=== PATIENT | female | born 1960 | race Caucasian/White ===

== ENCOUNTER → 2017-06-11 | Outpatient (CLI) | payer OTHER ==
[~2017-06-11] VITALS: Ht 152.4 cm; Wt 93.9 kg
[~2017-06-11] MED LIST: CATAFLAM50 MG; FLEXERIL5 MG; GILTUSS TR TAB1 EACH PO; NEURONTIN300 MG; NEURONTIN300 MG PO; NEURONTIN600 MG PO; TRENTAL 400 MG PO; VOLTAREM 50 MG PO
== END | disposition home or self-care (01) ==
LOC: PPHC 17:37
DX: M79.641 Pain in right hand (principal)

== ENCOUNTER 2017-06-15 11:11 | Outpatient (CLI) | payer OTHER | END 2017-06-15 11:17 | disposition home or self-care (01) | LOC: MAMO-SONO 11:11 | DX: Z12.31 Encounter for screening mammogram for malignant neoplasm of breast (principal) ==

== ENCOUNTER 2017-06-16 11:31 | Outpatient (CLI) | payer OTHER | END 2017-06-16 11:36 | disposition home or self-care (01) | LOC: RAD 11:31 | DX: M79.644 Pain in right finger(s) (principal) ==

== ENCOUNTER → 2017-07-21 | Outpatient (CLI) | payer OTHER | END | disposition home or self-care (01) | LOC: PPHC 08:29 | DX: Z00.00 Encounter for general adult medical examination without abnormal findings (principal) ==

== ENCOUNTER 2017-07-23 08:07 | Outpatient (CLI) | payer OTHER | END 2017-07-23 08:19 | disposition home or self-care (01) | LOC: LAB 08:07 | DX: M19.91 Primary osteoarthritis, unspecified site (principal); M25.50 Pain in unspecified joint; R42 Dizziness and giddiness ==

== ENCOUNTER 2017-10-27 08:15 | Outpatient (CLI) | payer OTHER | END 2017-10-27 08:31 | disposition home or self-care (01) | LOC: RAD 08:15 | DX: M54.2 Cervicalgia (principal); M54.9 Dorsalgia, unspecified ==

== ENCOUNTER → 2018-02-27 07:06 | Outpatient (CLI) | payer OTHER | END | disposition home or self-care (01) | LOC: LAB 07:06 | DX: M79.671 Pain in right foot (principal); R03.0 Elevated blood-pressure reading, without diagnosis of hypertension; N39.0 Urinary tract infection, site not specified; Z13.1 Encounter for screening for diabetes mellitus; Z12.11 Encounter for screening for malignant neoplasm of colon ==

== ENCOUNTER → 2018-03-18 | Outpatient (CLI) | payer OTHER | END | disposition home or self-care (01) | LOC: SONOGRAMA 10:05 → MAMO-SONO 10:15 | DX: E04.1 Nontoxic single thyroid nodule (principal); R10.2 Pelvic and perineal pain ==

== ENCOUNTER 2018-03-20 13:47 | Outpatient (CLI) | payer OTHER | END 2018-03-20 15:00 | disposition home or self-care (01) | LOC: RAD 13:47 | DX: M17.0 Bilateral primary osteoarthritis of knee (principal) ==

== ENCOUNTER 2018-04-02 06:22 | Outpatient (CLI) | payer OTHER | END 2018-04-02 07:09 | disposition home or self-care (01) | LOC: LAB 06:22 | DX: R73.03 Prediabetes (principal) ==

== ENCOUNTER 2018-07-15 06:26 | Outpatient (CLI) | payer OTHER | END 2018-07-15 06:30 | disposition home or self-care (01) | LOC: LAB 06:26 | DX: E11.65 Type 2 diabetes mellitus with hyperglycemia (principal); E75.00 GM2 gangliosidosis, unspecified ==

== ENCOUNTER 2018-12-28 07:30 | Outpatient (CLI) | payer OTHER | END 2018-12-28 07:37 | disposition home or self-care (01) | LOC: LAB 07:30 | DX: E11.65 Type 2 diabetes mellitus with hyperglycemia (principal) ==

== ENCOUNTER → 2019-01-23 13:52 | Outpatient (CLI) | payer OTHER | END | disposition home or self-care (01) | LOC: LAB 13:52 | DX: R42 Dizziness and giddiness (principal); J11.1 Influenza due to unidentified influenza virus with other respiratory manifestations ==

== ENCOUNTER 2019-03-13 12:57 | Outpatient (CLI) | payer OTHER | END 2019-03-13 13:04 | disposition home or self-care (01) | LOC: SONOGRAMA 12:57 | DX: E04.8 Other specified nontoxic goiter (principal) ==

== ENCOUNTER → 2019-03-20 06:39 | Outpatient (CLI) | payer OTHER | END | disposition home or self-care (01) | LOC: LAB 06:39 | DX: E03.8 Other specified hypothyroidism (principal); E11.65 Type 2 diabetes mellitus with hyperglycemia ==

== ENCOUNTER 2019-06-13 08:28 | Outpatient (CLI) | payer OTHER | END 2019-06-13 08:33 | disposition home or self-care (01) | LOC: LAB 08:28 | DX: E03.8 Other specified hypothyroidism (principal); E78.00 Pure hypercholesterolemia, unspecified; E11.69 Type 2 diabetes mellitus with other specified complication ==

== ENCOUNTER 2019-06-18 07:07 | Emergency (ER) | payer OTHER ==
[~2019-06-18] VITALS: Ht 160 cm; Wt 87.1 kg
[2019-06-18] MEDS ORDERED: CANDESARTAN CILE8 MG (07:39)
[2019-06-18] MEDS ORDERED: METFORMIN HCL500 M3 (07:40)
== END 2019-06-18 11:07 | disposition home or self-care (01) ==
LOC: ER 07:07
DX: R00.2 Palpitations (principal)

== ENCOUNTER 2019-08-02 17:47 | Emergency (ER) | payer OTHER ==
[~2019-08-02] VITALS: Ht 160 cm; Wt 87.1 kg
[~2019-08-02 17:47] MED LIST changes: +CANDESARTAN CILE8 MG; +METFORMIN HCL500 M3
== END 2019-08-02 19:07 | disposition home or self-care (01) ==
LOC: ER 17:47
DX: S70.212A Abrasion, left hip, initial encounter (principal); S30.0XXA Contusion of lower back and pelvis, initial encounter; W18.39XA Other fall on same level, initial encounter; Y93.89 Activity, other specified; Y92.69 Other specified industrial and construction area as the place of occurrence of the external cause; Y99.8 Other external cause status

== ENCOUNTER 2019-09-17 07:08 | Outpatient (CLI) | payer OTHER | END 2019-09-17 07:12 | disposition home or self-care (01) | LOC: LAB 07:08 | DX: E11.65 Type 2 diabetes mellitus with hyperglycemia (principal); E78.00 Pure hypercholesterolemia, unspecified ==

== ENCOUNTER 2020-01-30 20:00 | Outpatient (CLI) | payer OTHER | END 2020-01-30 20:01 | disposition home or self-care (01) | LOC: PPH VACUNA 20:00 | DX: Z23 Encounter for immunization (principal) ==

== ENCOUNTER 2020-03-20 08:47 | Outpatient (CLI) | payer OTHER | END 2020-03-20 08:53 | disposition home or self-care (01) | LOC: LAB 08:47 | PROVIDERS: ATTEND Internal Medicine | DX: D64.89 Other specified anemias (principal); R10.84 Generalized abdominal pain; E03.8 Other specified hypothyroidism; R07.89 Other chest pain; E78.49 Other hyperlipidemia; R80.8 Other proteinuria; R73.09 Other abnormal glucose ==

== ENCOUNTER 2020-04-14 10:14 | Outpatient (CLI) | payer OTHER | END 2020-04-14 10:25 | disposition home or self-care (01) | LOC: MAMO-SONO 10:14 | PROVIDERS: ATTEND General Practice | DX: R92.2 Inconclusive mammogram (principal) ==

== ENCOUNTER 2020-04-27 12:39 | Outpatient (CLI) | payer OTHER | END 2020-04-27 12:52 | disposition home or self-care (01) | LOC: NUCLEAR 12:39 | PROVIDERS: ATTEND Internal Medicine | DX: I11.9 Hypertensive heart disease without heart failure (principal); M81.0 Age-related osteoporosis without current pathological fracture ==

== ENCOUNTER 2020-04-29 18:13 | Outpatient (CLI) | payer OTHER | END 2020-04-29 23:55 | disposition home or self-care (01) | LOC: PPH VACUNA 18:13 | DX: Z23 Encounter for immunization (principal) ==

== ENCOUNTER 2020-05-15 07:34 | Outpatient (CLI) | payer OTHER | END 2020-05-15 07:40 | disposition home or self-care (01) | LOC: LAB 07:34 | DX: D50.8 Other iron deficiency anemias (principal); N39.0 Urinary tract infection, site not specified; Z12.11 Encounter for screening for malignant neoplasm of colon; I10 Essential (primary) hypertension; E78.2 Mixed hyperlipidemia ==